=== PATIENT | female | born 1950 | race Caucasian/White ===

== ENCOUNTER 2023-03-23 10:03 | Emergency (ER) | payer OTHER ==
[2023-03-23] MEDS ORDERED: KETOROLAC 30 MG/ML INJ ONE (10:25)
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
--- NOTE | 2023-03-23 11:14 | RAD REPORT ---
EXAM DESCRIPTION: RAD - Knee Left 3 View - 03/23/2023 10:40 am CLINICAL HISTORY: PAIN COMPARISON: No comparisons TECHNIQUE: Left knee, 3 views. FINDINGS: No fracture, dislocation or periosteal reaction.No joint effusion seen. Mild degenerative changes with medial weight-bearing joint space narrowing and marginal spurring. No soft tissue abnorm ality. Clinical concerns for internal derangement or occult bony injury could be further assessed with MR im aging. IMPRESSION: No acute osseus abnormality. Degenerative changes as above.
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
[2023-03-23 12:40] VITALS: TEMP 97.9
[2023-03-23 12:42] VITALS: BP 147/80; O2SAT 98
== END 2023-03-23 12:32 | disposition home or self-care (01) ==
LOC: ER 10:03
DX: M25.562 Pain in left knee (principal); M25.561 Pain in right knee; M54.2 Cervicalgia; I10 Essential (primary) hypertension
CPT/HCPCS: 70450; 72125; 96372; 99284